=== PATIENT | male | born 1990 | race Caucasian/White ===

== ENCOUNTER 2017-02-09 17:57 | Emergency (ER) | payer SELFPAY ==
[2017-02-09 18:11] VITALS: BP 134/81; PULSE 76; TEMP 98; BMI 25.7
--- NOTE | 2017-02-09 18:12 | PDOC ---
Rapid Medical Evaluation Time Seen by Provider: 02/09/17 18:07 Medical Evaluation: Allergies Allergy/AdvReac Type Severity Reaction Status Date / Time No Known Allergies Allergy Verified 01/29/15 19:24 02/09/17 18:08 I have performed a brief in-person evaluation of this patient. The patient presents with a chief complaint of: Pruritic rash to trunk and upper extremities x 1 week, not better w/ meds Pertinent physical exam findings: Oval, erythematous scaly papules and plaques on trunk/back and proximal upper extremities resembling possible pityriasis rosea I have ordered the following: nothing The patient will proceed to the ED for further evaluation.
--- NOTE | 2017-02-09 19:26 | PDOC ---
History of Present Illness - General Chief Complaint: Rash Stated Complaint: RASH Time Seen by Provider: 02/09/17 18:07 History Source: Patient Exam Limitations: No Limitations - History of Present Illness Initial Comments: 02/09/17 19:33 Chief complaint: Rash to torso and bilateral upper extremities 2 weeks slightly pruritic History of present illness: Patient is a 26-year-old male with no significant medical history here today complaining of a worsening oval shaped rash that is scattered across his torso and bilateral arms and neck for 2 weeks getting slightly worse. Patient reports that area slightly pruritic has been taking Benadryl as needed. Patient denies any new cosmetics, he medications, foods, or any difficulty breathing or swallowing. Patient denies any fever. Patient first remembers seeing rash on his forearm. Timing/Duration: getting worse (2 weeks ) Severity: moderate Associated Symptoms: reports: rash (oval shaped rash with slightly scaly centers arms, torso, neck slightly pruritic ) Past History - Past Medical History Allergies/Adverse Reactions: Allergies Allergy/AdvReac Type Severity Reaction Status Date / Time No Known Allergies Allergy Verified 01/29/15 19:24 Home Medications: Ambulatory Orders Cetirizine HCl [Zyrtec -] 10 mg PO DAILY 02/09/17 Diphenhydramine HCl [Benadryl -] 25 mg PO Q6H 02/09/17 Hydrocortisone 0.5% Cream [Hytone 0.5% Cream -] 1 applic TP DAILY 02/09/17 COPD: No - Suicide/Smoking/Psychosocial Hx Smoking History: Never smoked Have you smoked in the past 12 months: No Information on smoking cessation initiated: No Hx Alcohol Use: No Drug/Substance Use Hx: No Substance Use Type: None Review of Systems - Review of Systems Able to Perform ROS?: Yes Constitutional: No: Symptoms Reported HEENTM: No: Symptoms Reported Respiratory: No: Symptoms reported Cardiac (ROS): No: Symptoms Reported ABD/GI: No: Symptoms Reported : No: Symptoms Reported Musculoskeletal: No: Symptoms Reported Integumentary: Yes: Rash (oval shaped rash with central scaliness b/l arms, torso and neck ) Neurological: No: Symptoms reported *Physical Exam - Vital Signs Last Vital Signs Temp Pulse Resp BP Pulse Ox 98.0 F 76 18 134/81 100 02/09/17 18:10 02/09/17 18:10 12/05/17 18:10 02/09/17 18:10 02/09/17 18:10 - Physical Exam General Appearance: Yes: Appropriately Dressed HEENT: positive: Normal ENT Inspection Neck: negative: Lymphadenopathy (R), Lymphadenopathy (L) Respiratory/Chest: positive: Lungs Clear, Normal Breath Sounds. negative: Chest Tender, Respiratory Distress Cardiovascular: positive: Regular Rhythm, Regular Rate, S1, S2 Integumentary: positive: Rash (non raised small oval shaped rash with central scaliness one larger on chest (herald patch) scattered throughout torso) Neurologic: positive: Alert, Normal Response, Responsive Medical Decision Making - Medical Decision Making 02/09/17 19:34 Patient is a 26-year-old male with no significant medical history here today complaining of a worsening oval shaped rash that is scattered across his torso and bilateral arms and neck for 2 weeks getting slightly worse. Patient reports that area slightly pruritic has been taking Benadryl as needed. Patient denies any new cosmetics, he medications, foods, or any difficulty breathing or swallowing. Patient denies any fever. Patient first remembers seeing rash on his forearm. Pityriasis rosacea Plan: Continue to take Benadryl as needed as directed by rivet bucker for itchiness follow up with edging catcher if you would like *DC/Admit/Observation/Transfer Diagnosis at time of Disposition: Pityriasis rosea - Discharge Dispostion Disposition: HOME Condition at time of disposition: Stable - Referrals Referrals: Obinna Segura MD [Primary Care Provider] - Bob Spain [Non Staff, Medical] - - Patient Instructions Additional Instructions: Take Benadryl as needed as directed by manufacture for itchiness Stop putting hydrocortisone on rash, rash will resolve on its own may take a couple of weeks May follow up with edging catcher if you wish within the next few days Return to emergency room if any difficulty breathing or swallowing develops Patient voiced understanding of discharge instructions and all questions were answered - Post Discharge Activity
== END 2017-02-09 19:39 | disposition home or self-care (01) ==
LOC: JERFT 17:57
DX: L42 Pityriasis rosea (principal)
CPT/HCPCS: 99281-25

== ENCOUNTER 2021-03-29 17:11 | Emergency (ER) | payer OTHER ==
[2021-03-29 17:44] VITALS: BP 120/69; PULSE 76; TEMP 98; BMI 24.9
[2021-03-29] MEDS ORDERED: SODIUM CHLORIDE 0.9% 500 ML INFUS.BAG IV ONE (18:00)
[2021-03-29] MEDS ORDERED: PANTOPRAZOLE SODIUM 40 MG VIAL IVPUSH ONE (18:00)
[2021-03-29] MEDS ORDERED: MAG HYDROX/AL HYDROX/SIMETH 30 ML UNIT-DOSE CUP PO ONE (18:00)
[2021-03-29] MEDS ORDERED: KETOROLAC TROMETHAMINE 30 MG/1 ML VIAL IVPUSH ONE (18:00)
[2021-03-29] MEDS ORDERED: ONDANSETRON 4 MG/2 ML VIAL IVPUSH ONE (18:00)
[2021-03-29] MEDS ORDERED: KETOROLAC TROMETHAMINE 30 MG/1 ML VIAL ONE (18:15)
[2021-03-29] MEDS ORDERED: MAG HYDROX/AL HYDROX/SIMETH 30 ML UNIT-DOSE CUP ONE (18:15)
[2021-03-29] MEDS ORDERED: PANTOPRAZOLE SODIUM 40 MG VIAL ONE (18:15)
[2021-03-29] MEDS ORDERED: ONDANSETRON 4 MG/2 ML VIAL ONE (18:15)
[2021-03-29 18:55] LABS: BASO % 0.9 % (0-2.0); EOS % 7.4 % (0-4.5); HEMATOCRIT 45.4 % (35.4-49); HEMOGLOBIN 15.4 GM/dL (11.7-16.9); LYMPH % 34.2 % (8-40); MEAN CELL VOLUME 88.1 fl (80-96); MEAN PLT VOLUME 9.4 fl (7.5-11.1); MONO % 8.4 % (3.8-10.2); NEUT % 49.1 % (42.8-82.8); PLATELET COUNT 227 10^3/uL (134-434); RBC 5.16 M/mm3 (4.00-5.60); RDW 12.7 % (11.9-15.9)
[2021-03-29 19:01] LABS: INR 1.07 (0.83-1.09); PROTHROMBIN TIME (PATIENT) 12.3 SEC (9.7-13.0)
[2021-03-29 19:10] LABS: CHLORIDE 130 mmol/L (98-107)
[2021-03-29 19:14] LABS: ALBUMIN 4.7 g/dl (3.4-5.0); BLOOD UREA NITROGEN 13.6 mg/dL (7-18); CALCIUM 9.7 mg/dL (8.5-10.1); CO2 28 mmol/L (21-32); GLUCOSE,RANDOM 83 mg/dL (74-106); LIPASE 191 U/L (73-393)
[2021-03-29 19:17] LABS: CREATININE 1.1 mg/dL (0.55-1.3); SGOT/AST 39 U/L (15-37)
[2021-03-29 19:18] LABS: BILIRUBIN,TOTAL 0.5 mg/dL (0.2-1); SGPT/ALT 71 U/L (13-61)
[2021-03-29 19:20] LABS: ALK PHOS 91 U/L (45-117)
[2021-03-29 19:48] LABS: ANION GAP -16 MMOL/L (8-16); SODIUM 142 mmol/L (136-145)
[2021-03-29 20:56] LABS: CALCIUM 9.2 mg/dL (8.5-10.1)
[2021-03-29 20:57] LABS: ALBUMIN 4.2 g/dl (3.4-5.0); BLOOD UREA NITROGEN 13.4 mg/dL (7-18)
[2021-03-29 21:00] LABS: CREATININE 1.1 mg/dL (0.55-1.3)
[2021-03-29 21:01] LABS: BILIRUBIN,TOTAL 0.4 mg/dL (0.2-1); TOT PROT 7.2 g/dl (6.4-8.2)
== END 2021-03-29 21:28 | disposition home or self-care (01) ==
LOC: JER 17:11
PROC: 3E0333Z Introduction of Anti-inflammatory into Peripheral Vein, Percutaneous Approach (ICD-10-PCS; principal; 2021-03-29)
PROC: 3E033GC Introduction of Other Therapeutic Substance into Peripheral Vein, Percutaneous Approach (ICD-10-PCS; 2021-03-29)
PROC: 3E033GC Introduction of Other Therapeutic Substance into Peripheral Vein, Percutaneous Approach (ICD-10-PCS; 2021-03-29)
DX: R06.00 Dyspnea, unspecified (principal)
CPT/HCPCS: 36415; 71046-TC-FY; 80053; 83690; 84484; 85025; 85610; 93005; 93010; 99285-25